=== PATIENT | female | born 1975 | race Two or more races ===

== ENCOUNTER 2021-11-01 10:46 | Emergency (ER) | payer OTHER ==
[~2021-11-01] VITALS: Ht 160 cm; Wt 47.6 kg
[2021-11-01 10:52] VITALS: BP 107/67
--- NOTE | 2021-11-01 10:52 | NUR ---
TO ER BED 16. PT MISSED A STEP LAST NIGHT AND TWISTED RIGHT ANKLE.
--- NOTE | 2021-11-01 11:51 | NUR ---
CALLED XRAY TO FOLLOW UP XRAY RESULT.
--- NOTE | 2021-11-01 12:02 | NUR ---
WALKING BOOT APPLIED AND CRUTCHES PROVIDED BY [employer]IST SAL[employer].
--- NOTE | 2021-11-01 12:04 | NUR ---
Patient discharged to home in stable condition. Written and verbal after care instructions given. Patient verbalizes understanding of instruction.
== END 2021-11-01 12:05 | disposition home or self-care (01) ==
LOC: ER 10:56
DX: S93.601A Unspecified sprain of right foot, initial encounter (principal); X50.1XXA Overexertion from prolonged static or awkward postures, initial encounter; Y93.89 Activity, other specified; Y92.89 Other specified places as the place of occurrence of the external cause; Y99.8 Other external cause status
CPT/HCPCS: 73630-TC